=== PATIENT | male | born 1990 | race American Indian/Alaskan Native ===

== ENCOUNTER 2021-10-13 21:58 | Emergency (ER) | payer OTHER ==
--- NOTE | 2021-10-13 22:08 | Emergency Department Report ---
ED Fall HPI - General Stated Complaint: NOSE LAC Time Seen by Provider: 10/13/21 22:00 Source: patient Limitations: No Limitations - History of Present Illness Initial Comments: 31-year-old F Tong[place] male was at a bar having drink reporting drinking an oversized debora when he stood up and began to walk and fell into a wall when he woke up he was on the ground bleeding with facial trauma reporting a dull throbbing headache and pain to his to his face. He reports no significant past medical history reports no chest pain or palpitations, no nausea, no vomiting, no abdominal pain, no chest pain. MD Complaint: fall -: Gradual Fall From: standing When Fall Occurred: 1-3 hours [employer] Fall Witnessed: no Place Fall Occurred: home Loss of Consciousness: yes Symptoms Prior to Fall: none Location: face Severity: mild, moderate Quality: dull - Related Data Previous Rx's Medication Instructions Recorded Last Taken Type HYDROcodone/APAP 10-325 [Vermillion 1 each PO Q6HR PRN #14 tablet 10/14/21 Unknown Rx 10/325] cephALEXin [Keflex] 500 mg PO Q6HR #40 capsule 10/14/21 Unknown Rx Allergies Allergy/AdvReac Type Severity Reaction Status Date / Time No Known Allergies Allergy Unverified 10/13/21 22:03 ED Review of Systems ROS: Stated complaint: NOSE LAC Other details as noted in HPI Comment: All other systems reviewed and negative ED Past Medical Hx - Medications Home Medications: Home Medications Medication Instructions Recorded Confirmed Last Taken Type HYDROcodone/APAP 10-325 [Vermillion 1 each PO Q6HR PRN #14 tablet 10/14/21 Unknown Rx 10/325] cephALEXin [Keflex] 500 mg PO Q6HR #40 capsule 10/14/21 Unknown Rx ED Physical Exam - General General appearance: alert, in no apparent distress - Head Head exam: Present: normocephalic. Absent: atraumatic - Expanded Head Exam Expanded Head exam: Present: contusion 1 - Nasal laceration jagged 2 - Contusion to this region. 3 - Contusion to the 4 - Some intraoral bleeding and chipped tooth numbers 7 and 8 - Eye Eye exam: Present: normal appearance, PERRL, EOMI Pupils: Present: normal accommodation - ENT ENT exam: Present: normal exam, normal orophraynx, mucous membranes moist, TM's normal bilaterally - Neck Neck exam: Present: normal inspection, full ROM - Respiratory Respiratory exam: Present: normal lung sounds bilaterally. Absent: respiratory distress - Cardiovascular Cardiovascular Exam: Present: regular rate, normal rhythm. Absent: systolic murmur, diastolic murmur, rubs, gallop - GI/Abdominal GI/Abdominal exam: Present: soft, normal bowel sounds - Rectal Rectal exam: Present: deferred - Extremities Exam Extremities exam: Present: normal inspection - Back Exam Back exam: Present: normal inspection - Neurological Exam Neurological exam: Present: alert, oriented X3 - Psychiatric Psychiatric exam: Present: normal affect, normal mood - Skin Skin exam: Present: warm, dry, intact, normal color. Absent: rash ED Course Vital Signs 10/13/21 10/14/21 22:03 00:47 Temperature 97.3 F L 97.7 F Pulse Rate 65 Respiratory 14 18 Rate Blood Pressure 115/54 109/36 O2 Sat by Pulse 99 Oximetry - Laceration /Wound Repair Nose Wound Location: face Wound Length (cm): 4 Wound Explored: clean Irrigated w/ Saline (ccs): 50 Betadine Prep?: Yes Anesthesia: 1% Lidocaine Volume Anesthetic (ccs): 7 Wound Repaired With: sutures Suture Size/Type: 5:0 Number of Sutures: 10 ED Medical Decision Making - Radiology Data Radiology results: [place] [address] Cat Scan Report Signed Patient: MC GERMAIN MR#: [id number] : 1990 Acct:[id number] Age/Sex: 31 / M ADM Date: 10/13/21 Loc: ED Attending Dr: Ordering Physician: LOUISE THOMAS Date of Service: 10/13/21 Procedure(s): CT facial bones wo con Accession Number(s): [id number] cc: LOUISE THOMAS CT facial bones wo con INDICATION: facial trauma fall. TECHNIQUE: All CT scans at this location are performed using the following dose modulation technique: Automated exposure control. CONTRAST: None. COMPARISON: None available. FINDINGS: Fracture involving the floor of the right orbit. A few fragments are mildly depressed laterally. Negative for intra-abdominal muscle or significant intrahepatic fat. Mild irregularity is also seen at the medial wall of the maxillary sinus likely representing a fracture. A mildly comminuted nasal fracture is present. The right maxillary sinus contains fluid, debris and mild blood. IMPRESSION: 1. Inferior right orbital blowout fracture without entrapment muscle or fat. 2. Fractures involving the medial wall right maxillary sinus and the nasal bone are also present. 3. Fluid, blood and small bone fragments right maxillary sinus. Signer Name: Rafael Betancourt MD Signed: 10/13/2021 10:54 PM Workstation Name: [id number] Transcribed By: ES Dictated By: Rafael Betancourt MD Electronically Authenticated By: Rafael Betancourt MD Signed Date/Time: 10/13/212253 DD/ 48 TD/TT: Print Cancel - Medical Decision Making 31-year-old -Tongan male intoxicated status post trip and fall resulting in facial trauma involving a blowout fracture, comminuted nasal fracture and right maxillary sinus fracture with a GCS of fifteen. He was placed in a room and sinuses were irrigated and repaired with sutures. He was given a gram of Ancef as well as analgesic medication. Case was discussed with [facility] Dr. Min who did recommend follow-up on outpatient basis he did take them the patient's number to call him for an appointment on Friday or Friday as surgical fixation is eminent. Radiology was notified so that they could push the images to the [facility] cater[facility] server as well. He maintained hemodynamic stability while in the emergency department. Critical care attestation.: If time is entered above; I have spent that time in minutes in the direct care of this critically ill patient, excluding procedure time. ED Disposition Clinical Impression: Fracture of orbital floor, blow-out, right, closed, Maxillary fracture, Nasal bones, open fracture Disposition: 01 HOME / SELF CARE / HOMELESS Is pt being admited?: No Does the pt Need Aspirin: No Condition: Stable Prescriptions: cephALEXin [Keflex] 500 mg PO Q6HR #40 capsule HYDROcodone/APAP 10-325 [Vermillion 10/325] 1 each PO Q6HR PRN #14 tablet PRN Reason: Pain Referrals: PRIMARY CARE, [Primary Care Provider] - 3-5 Days [facility] [Outside] - 2-3 Days (Be sure to follow-up with [facility] as we discussed and recommended by the trauma surgeon they will contact you on Friday with the appointment time)
[2021-10-13] MEDS ORDERED: HYDROcodone/ACETAMINOPHEN 5-325 MG TAB PO STA (22:16)
--- NOTE | 2021-10-13 22:50 | Cat Scan Report ---
CT head without contrast INDICATION : facial trauma fall. TECHNIQUE: Axial imaging performed from the skull apex through the skull base without the use of con trast. All CT scans at this location are performed using CT dose reduction for ALARA by means of aut omated exposure control. COMPARISON: None FINDINGS: Parenchyma: No mass, stroke or hemorrhage. Ventricles: Ventricles are normal in size and appear symmetric. Soft tissues: Soft tissues including the orbits appear normal. Bones: Mildly comminuted fracture involving the floor of the right orbit with fragments extending in to the superior aspect of the maxillary sinus. There is also a fracture involving the medial wall of the orbit and the nasal bone. Sinuses: Moderate right maxillary air-fluid level. Internal debris is also present superiorly. IMPRESSION: 1. No intracranial injury. 2. Fractures involving the floor of the right orbit, medial wall the right maxillary sinus and nasal bones. 3. Fluid and debris right maxillary sinus. No entrapment muscle. Signer Name: Rafael Betancourt MD Signed: 10/13/2021 10:45 PM Workstation Name: [id number]
--- NOTE | 2021-10-13 22:58 | Cat Scan Report ---
CT facial bones wo con INDICATION: facial trauma fall. TECHNIQUE: All CT scans at this location are performed using the following dose modulation technique: Automated exposure control. CONTRAST: None. COMPARISON: None available. FINDINGS: Fracture involving the floor of the right orbit. A few fragments are mildly depressed later ally. Negative for intra-abdominal muscle or significant intrahepatic fat. Mild irregularity is also seen at the medial wall of the maxillary sinus likely representing a fracture. A mildly comminuted na raeann fracture is present. The right maxillary sinus contains fluid, debris and mild blood. IMPRESSION: 1. Inferior right orbital blowout fracture without entrapment muscle or fat. 2. Fractures involving the medial wall right maxillary sinus and the nasal bone are also present. 3. Fluid, blood and small bone fragments right maxillary sinus. Signer Name: Rafael Betancourt MD Signed: 10/13/2021 10:54 PM Workstation Name: [id number]
[2021-10-13] MEDS ORDERED: LIDOCAINE (1%) 10 MG/1 ML VIAL 20 ML MDV INFILTRATI ONE (23:36)
[2021-10-14 00:48] VITALS: BP 109/36
[2021-10-14] MEDS ORDERED: ceFAZolin 1 GM VIAL IM STA (00:50)
== END 2021-10-14 01:44 | disposition home or self-care (01) ==
LOC: ED 21:58
DX: S02.31XA Fracture of orbital floor, right side, initial encounter for closed fracture (principal); S02.2XXB Fracture of nasal bones, initial encounter for open fracture; X58.XXXA Exposure to other specified factors, initial encounter; Y93.89 Activity, other specified; Y92.89 Other specified places as the place of occurrence of the external cause; Y99.8 Other external cause status
CPT/HCPCS: 12013; 70450; 70486; 96372; 99283; J0690; J3490